=== PATIENT | male | born 1950 | race Caucasian/White ===

== ENCOUNTER 2017-05-15 09:41 | Inpatient (IN) | payer OTHER ==
[~2017-05-15] VITALS: Ht 175.3 cm; Wt 108.5 kg
[2017-05-15] MEDS ORDERED: SODIUM CHLORIDE 0.9% 1,000 ML IV ONE (09:48)
[2017-05-15] MEDS ORDERED: SODIUM CHLORIDE FLUSH 10ML SYR IVF ONE (10:00)
[2017-05-15 10:03] LABS: HEMATOCRIT 48.5 % (39.2-51.8); HEMOGLOBIN 16.3 g/dL (13.7-18.0); WHITE BLOOD COUNT 7.5 x10^3/uL (3.4-10)
[2017-05-15 10:16] LABS: BLOOD UREA NITROGEN 27 mg/dL (7-18)
[2017-05-15 10:20] LABS: IS PT STATUS REG ER OR PRE ER? YES
[2017-05-15] MEDS ORDERED: PLEASE ENTER ALLERGIES MC SCH ×2 (10:30)
[2017-05-15] MEDS ORDERED: ACETAMINOPHEN 325 MG TABLET PO PRN (11:00)
[2017-05-15] MEDS: SODIUM CHLORIDE 0.9% 1,000 ML IV SCH ×2 (11:00→19:00)
[2017-05-15] MEDS ORDERED: ONDANSETRON 2MG/ML, 2ML IVPush PRN (11:00)
[2017-05-15] MEDS ORDERED: ZOLPIDEM 5MG TABLET PO PRN (11:00)
[2017-05-15 11:36] LABS: BLOOD UREA NITROGEN 27 mg/dL (7-18)
[2017-05-15] MEDS ORDERED: STATIN (11:37)
[2017-05-15 14:16] VITALS: BP 136/78
[2017-05-15] MEDS ORDERED: ROVUSTATIN PO (15:40)
[2017-05-15 18:37] VITALS: BP 126/67
[2017-05-15] MEDS: SODIUM CHLORIDE FLUSH 10ML SYR IVF SCH (21:48)
[2017-05-16 00:58] VITALS: BP 112/56
[2017-05-16] MEDS: SODIUM CHLORIDE 0.9% 1,000 ML IV SCH ×5 (06:24→19:12)
[2017-05-16 08:37] VITALS: BP 145/76
[2017-05-16] MEDS: SODIUM CHLORIDE FLUSH 10ML SYR IVF SCH ×2 (09:00→21:23)
[2017-05-16] MEDS ORDERED: FENTANYL PF 100 MCG/2ML ONE (09:46)
[2017-05-16] MEDS ORDERED: MIDAZOLAM 1 MG/ML, 5ML ONE (09:46)
[2017-05-16] MEDS ORDERED: VERAPAMIL 2.5 MG/ML, 2ML ONE (09:47)
[2017-05-16] MEDS ORDERED: HEPARIN 1,000 UNITS/ML, 10ML ONE (09:47)
[2017-05-16] MEDS ORDERED: LIDOCAINE 2%, 20ML ONE (09:47)
[2017-05-16] MEDS ORDERED: BIVALIRUDIN 250 MG ONE (09:47)
[2017-05-16 14:40] VITALS: BP 107/71
[2017-05-16 20:05] VITALS: BP 141/88
[2017-05-17 02:10] VITALS: BP 121/73
[2017-05-17 08:00] VITALS: BP 145/85
[2017-05-17] MEDS: SODIUM CHLORIDE FLUSH 10ML SYR IVF SCH ×2 (09:00→23:58)
[2017-05-17 14:00] VITALS: BP 129/73
[2017-05-17 19:40] VITALS: BP 145/80
[2017-05-17] MEDS ORDERED: ONDANSETRON 2MG/ML, 2ML IVPush PRN (20:00)
[2017-05-17] MEDS ORDERED: ACETAMINOPHEN 325 MG TABLET PO PRN (20:00)
[2017-05-18 01:51] VITALS: BP 123/85
[2017-05-18] MEDS ORDERED: AMIODARONE 150 MG in DEXTROSE 5% 100 ML IV ONE (02:00)
[2017-05-18] MEDS ORDERED: AMIODARONE 900 MG in DEXTROSE 5% 482 ML IV PRN (02:00)
[2017-05-18] MEDS ORDERED: FILTER 0.22 MICRON IV PRN (02:00)
[2017-05-18 03:10] VITALS: BP 126/80
[2017-05-18 08:17] VITALS: BP 142/77
[2017-05-18] MEDS: SODIUM CHLORIDE FLUSH 10ML SYR IVF SCH ×3 (08:20→22:03)
[2017-05-18 12:45] VITALS: BP 134/76
[2017-05-18] MEDS ORDERED: ATORVASTATIN 40 MG TABLET PO SCH (17:00)
[2017-05-18] MEDS: CRESTOR 20 MG HOMEMEDPO SCH (17:50)
[2017-05-18] MEDS ORDERED: INSULIN ASPART 100 UNITS/ML, PEN SQ-INSULIN SCH (18:30)
[2017-05-18] MEDS ORDERED: CHLORHEXIDINE MOUTHWASH 15 ML UDC MM PRN (18:30)
[2017-05-18 18:46] LABS: HEMATOCRIT 47.8 % (39.2-51.8); WHITE BLOOD COUNT 8.9 x10^3/uL (3.4-10)
[2017-05-18 18:58] LABS: BLOOD UREA NITROGEN 21 mg/dL (7-18)
[2017-05-18 19:01] LABS: ASPARTATE AMINO TRANSFERASE 12 U/L (15-37)
[2017-05-18 20:00] VITALS: BP 119/73
[2017-05-18] MEDS: MUPIROCIN OINT 2%, 22GM TP SCH (23:19)
[2017-05-19] VITALS (9 sets, daily range): BP systolic 87–138; BP diastolic 43–81
[2017-05-19] MEDS ORDERED: ALBUMIN HUMAN 5% 500 ML IV ONE (03:30)
[2017-05-19] MEDS ORDERED: POTASSIUM CHLORIDE 80 MEQ, SODIUM BICARBONATE 8.4% 10 MEQ, MAGNESIUM SULFATE 0.5 GM, LI... IV PRN (07:30)
[2017-05-19] MEDS ORDERED: PHENYLEPHRINE 10 MG in SODIUM CHLORIDE 0.9% 249 ML IV PRN ×2 (07:30→17:45)
[2017-05-19] MEDS ORDERED: EPINEPHRINE 2 MG in SODIUM CHLORIDE 0.9% 248 ML IV SCH (07:30)
[2017-05-19] MEDS ORDERED: MANNITOL PMX 20% 500 ML IVPB PRN (07:30)
[2017-05-19] MEDS ORDERED: VANCOMYCIN 1,500 MG in SODIUM CHLORIDE 0.9% 250 ML IVPB PRN (07:30)
[2017-05-19] MEDS ORDERED: DEXMEDETOMIDINE 200 MCG in SODIUM CHLORIDE 0.9% 48 ML IV SCH (07:30)
[2017-05-19] MEDS ORDERED: CEFUROXIME 1.5 GM in SODIUM CHLORIDE 0.9% 50 ML IVPB PRN (07:30)
[2017-05-19] MEDS ORDERED: REGULAR INSULIN 62.5 UNITS in SODIUM CHLORIDE 0.9% 249.375 ML IV PRN ×2 (07:30→17:45)
[2017-05-19] MEDS: SODIUM CHLORIDE FLUSH 10ML SYR IVF SCH ×5 (09:00→21:56)
[2017-05-19] MEDS: MUPIROCIN OINT 2%, 22GM TP SCH ×2 (09:59→23:27)
[2017-05-19] MEDS ORDERED: FENTANYL PF 1000 MCG/20ML ONE (11:55)
[2017-05-19] MEDS ORDERED: MIDAZOLAM 10MG/2 ML ONE (11:55)
[2017-05-19] MEDS ORDERED: PROPOFOL 10 MG/ML, 20ML ONE (14:35)
[2017-05-19] MEDS ORDERED: PROTAMINE SULFATE 10 MG/ML, 25ML ONE (14:35)
[2017-05-19] MEDS ORDERED: ROCURONIUM 10 MG/ML ONE (14:35)
[2017-05-19] MEDS ORDERED: FENTANYL PF 250 MCG/5ML ONE (16:09)
[2017-05-19] MEDS ORDERED: CALCIUM CHLORIDE 10%, 10ML SYR ONE (16:35)
[2017-05-19] MEDS ORDERED: MILRINONE 1 MG/ML, 10ML IV ONE (17:28)
[2017-05-19] MEDS ORDERED: SODIUM CHLORIDE 0.9% 1,000 ML IV PRN (17:45)
[2017-05-19] MEDS ORDERED: NITROGLYCERIN/D5W PMX 250 ML IV PRN (17:45)
[2017-05-19] MEDS ORDERED: DEXMEDETOMIDINE 200 MCG in SODIUM CHLORIDE 0.9% 48 ML IV PRN (17:45)
[2017-05-19] MEDS ORDERED: DOBUTAMINE 250 MG in SODIUM CHLORIDE 0.9% 230 ML IV PRN (17:45)
[2017-05-19] MEDS ORDERED: EPINEPHRINE 2 MG in SODIUM CHLORIDE 0.9% 248 ML IV PRN (18:00)
[2017-05-19] MEDS ORDERED: MIDAZOLAM 1 MG/ML, 5ML IVPush PRN (18:00)
[2017-05-19] MEDS ORDERED: SODIUM BICARB 8.4%, 50ML SYRINGE IV PRN (18:00)
[2017-05-19] MEDS ORDERED: GLUCAGON 1 MG IM PRN (18:00)
[2017-05-19] MEDS ORDERED: BISACODYL 10 MG SUPP PR PRN (18:00)
[2017-05-19] MEDS ORDERED: DEXTROSE 50%, 50ML SYRINGE IVPush PRN (18:00)
[2017-05-19] MEDS ORDERED: morphine SULFATE 10 MG/ML, 1ML IVPush PRN (18:00)
[2017-05-19] MEDS ORDERED: ONDANSETRON 2MG/ML, 2ML IVPush PRN (18:00)
[2017-05-19] MEDS ORDERED: MEPERIDINE/PF 25MG/0.5ML IVPush PRN (18:00)
[2017-05-19] MEDS ORDERED: ACETAMINOPHEN 325 MG TABLET PO PRN (18:00)
[2017-05-19] MEDS ORDERED: BISACODYL 5 MG EC TABLET PO PRN (18:00)
[2017-05-19] MEDS ORDERED: DEXTROSE 4 GM TAB.CHEW PO PRN (18:00)
[2017-05-19] MEDS ORDERED: ACETAMINOPHEN 650 MG SUPP PR PRN (18:00)
[2017-05-19] MEDS ORDERED: PROCHLORPERAZINE 5 MG/ML, 2ML IVPush PRN (18:00)
[2017-05-19] MEDS ORDERED: SODIUM BICARB 8.4%, 50ML SYRINGE ONE (18:14)
[2017-05-19] MEDS ORDERED: ALBUMIN HUMAN 25% 50 ML ONE (18:14)
[2017-05-19] MEDS ORDERED: LIDOCAINE 2%, 20ML ONE (18:15)
[2017-05-19] MEDS ORDERED: LIDOCAINE 2% 100MG/5ML SYRINGE ONE (18:16)
[2017-05-19] MEDS ORDERED: methylPREDNISolone SOD SUCC 125 MG/2 ML ONE (18:16)
[2017-05-19] MEDS ORDERED: AMIODARONE 50 MG/ML, 3ML ONE (18:17)
[2017-05-19] MEDS ORDERED: HEPARIN 1,000 UNITS/ML, 30ML ONE (18:17)
[2017-05-19 18:18] LABS: HEMATOCRIT 44.4 % (39.2-51.8); HEMOGLOBIN 14.7 g/dL (13.7-18.0)
[2017-05-19 18:21] LABS: ABG COLLECTION SITE ARTERIAL LINE
[2017-05-19] MEDS: CRESTOR 20 MG HOMEMEDPO SCH (18:39)
[2017-05-19] MEDS: KSCALE TO 4.5 IV SCH (18:41)
[2017-05-19] MEDS: MAGNESIUM SULFATE 1 GM in SODIUM CHLORIDE 0.9% 50 ML IVPB SCH ×2 (19:26→21:56)
[2017-05-19] MEDS ORDERED: CALCIUM CHLORIDE 13.6 MEQ in SODIUM CHLORIDE 0.9% 100 ML IV ONE (19:30)
[2017-05-19] MEDS: LACTATED RINGERS 500 ML IV PRN (19:57)
[2017-05-19] MEDS ORDERED: NOVOSEVEN RT (FACTOR VIIA) RECOMB 1,000 MCG IVPush STA ×2 (20:32→21:44)
[2017-05-19 20:50] LABS: HEMATOCRIT 36.4 % (39.2-51.8); HEMOGLOBIN 11.8 g/dL (13.7-18.0)
[2017-05-19] MEDS: MUPIROCIN OINT 2%, 22GM NAS SCH (21:00)
[2017-05-19] MEDS: DOCUSATE 100 MG CAPSULE PO SCH (23:27)
[2017-05-19] MEDS: OXYcodone IR 5MG TABLET PO PRN (23:28)
[2017-05-20] MEDS: LACTATED RINGERS 500 ML IV PRN ×2 (00:40→00:41)
[2017-05-20 00:56] LABS: HEMATOCRIT 34.5 % (39.2-51.8); HEMOGLOBIN 11.2 g/dL (13.7-18.0)
[2017-05-20] MEDS ORDERED: POTASSIUM CHLORIDE 40 MEQ in SODIUM CHLORIDE 0.9% 100 ML IV ONE (01:30)
[2017-05-20] MEDS: INSULIN ASPART 100 UNITS/ML, PEN SQ-INSULIN PRN ×3 (01:37→09:36)
[2017-05-20] MEDS ORDERED: EPINEPHRINE 4 MG in SODIUM CHLORIDE 0.9% 246 ML IV PRN (01:58)
[2017-05-20] MEDS: HYDROcodone/APAP 10/325 MG TABLET PO PRN ×4 (02:29→19:35)
[2017-05-20 05:36] LABS: ABG COLLECTION SITE ARTERIAL LINE
[2017-05-20 05:42] LABS: HEMATOCRIT 31.3 % (39.2-51.8); HEMOGLOBIN 10.6 g/dL (13.7-18.0); WHITE BLOOD COUNT 20.9 x10^3/uL (3.4-10)
[2017-05-20 05:50] LABS: BLOOD UREA NITROGEN 21 mg/dL (7-18)
[2017-05-20 05:57] LABS: DIFF TOTAL CELLS COUNTED 100 CELL DIFF
[2017-05-20 05:59] LABS: VERIFY COUNTS? YES
[2017-05-20] MEDS: KSCALE TO 4.5 IV SCH ×2 (06:00)
[2017-05-20] MEDS: CEFUROXIME 1.5 GM in SODIUM CHLORIDE 0.9% 50 ML IVPB SCH ×2 (06:15→17:12)
[2017-05-20] MEDS: VANCOMYCIN 1,500 MG in SODIUM CHLORIDE 0.9% 250 ML IVPB SCH ×2 (06:16→17:12)
[2017-05-20] MEDS ORDERED: POTASSIUM CHLORIDE PMX 100 ML IV ONE (06:30)
[2017-05-20] MEDS: OXYcodone IR 5MG TABLET PO PRN ×2 (06:31→17:13)
[2017-05-20] MEDS: PANTOPRAZOLE 40 MG IV IVPush SCH (08:18)
[2017-05-20] MEDS: MUPIROCIN OINT 2%, 22GM TP SCH (08:19)
[2017-05-20] MEDS: MUPIROCIN OINT 2%, 22GM NAS SCH ×2 (08:19→20:31)
[2017-05-20] MEDS: SODIUM CHLORIDE FLUSH 10ML SYR IVF SCH ×4 (08:19→20:33)
[2017-05-20] MEDS: DOCUSATE 100 MG CAPSULE PO SCH ×2 (08:19→20:32)
[2017-05-20] MEDS: ASPIRIN 81 MG TABLET EC PO SCH (08:19)
[2017-05-20 09:47] LABS: ABG COLLECTION SITE ARTERIAL LINE
[2017-05-20] MEDS: INSULIN ASPART 100 UNITS/ML, PEN SQ-INSULIN SCH ×3 (12:00→20:35)
[2017-05-20] MEDS: WARFARIN MODERAT DOSE PROTOCOL XX SCH (12:00)
[2017-05-20] MEDS: LISINOPRIL 5 MG TABLET PO SCH ×2 (12:08→14:20)
[2017-05-20] MEDS ORDERED: PROPOFOL 10 MG/ML, 20ML ONE (14:35)
[2017-05-20] MEDS ORDERED: ROCURONIUM 10 MG/ML ONE (14:35)
[2017-05-20] MEDS: CRESTOR 20 MG HOMEMEDPO SCH (17:13)
[2017-05-20] MEDS: CHLORHEXIDINE MOUTHWASH 15 ML UDC MM SCH (17:13)
[2017-05-20] MEDS ORDERED: WARFARIN 7.5 MG TABLET PO-COUM ONE (18:00)
[2017-05-20] MEDS: MAGNESIUM SULFATE 1 GM in SODIUM CHLORIDE 0.9% 50 ML IVPB SCH (18:11)
[2017-05-20] MEDS: LISINOPRIL 10 MG TABLET PO SCH (20:32)
[2017-05-21] MEDS: INSULIN ASPART 100 UNITS/ML, PEN SQ-INSULIN SCH ×6 (00:26→23:00)
[2017-05-21] MEDS: OXYcodone IR 5MG TABLET PO PRN ×2 (00:27→12:02)
[2017-05-21 04:56] LABS: HEMOGLOBIN 9.3 g/dL (13.7-18.0); WHITE BLOOD COUNT 15.4 x10^3/uL (3.4-10)
[2017-05-21] MEDS: HYDROcodone/APAP 10/325 MG TABLET PO PRN (05:02)
[2017-05-21 05:07] LABS: BLOOD UREA NITROGEN 23 mg/dL (7-18)
[2017-05-21 07:00] VITALS: BP 98/52
[2017-05-21] MEDS ORDERED: MAGNESIUM HYDROXIDE 8%, 30ML UDC PO PRN (08:00)
[2017-05-21] MEDS: FUROSEMIDE 40 MG/4 ML IV SCH ×2 (08:20→17:00)
[2017-05-21] MEDS: POTASSIUM CHLORIDE 20 MEQ TAB.ER.PRT PO SCH ×2 (08:20→18:05)
[2017-05-21] MEDS: KETOROLAC 30 MG/1 ML IVPush PRN ×3 (08:20→14:47)
[2017-05-21] MEDS: CHLORHEXIDINE MOUTHWASH 15 ML UDC MM SCH ×2 (08:26→20:57)
[2017-05-21] MEDS: SODIUM CHLORIDE FLUSH 10ML SYR IVF SCH ×3 (09:10→20:53)
[2017-05-21] MEDS: DOCUSATE 100 MG CAPSULE PO SCH ×2 (09:11→20:52)
[2017-05-21] MEDS: PANTOPRAZOLE 40 MG IV IVPush SCH (09:11)
[2017-05-21] MEDS: LISINOPRIL 10 MG TABLET PO SCH ×2 (09:11→20:53)
[2017-05-21] MEDS: MUPIROCIN OINT 2%, 22GM NAS SCH ×2 (09:11→20:52)
[2017-05-21] MEDS: ASPIRIN 81 MG TABLET EC PO SCH (09:11)
[2017-05-21 09:30] VITALS: BP 113/53
[2017-05-21] MEDS: WARFARIN MODERAT DOSE PROTOCOL XX SCH (12:00)
[2017-05-21 14:00] VITALS: BP 102/52
[2017-05-21] MEDS: CRESTOR 20 MG HOMEMEDPO SCH (17:00)
[2017-05-21] MEDS ORDERED: WARFARIN 7.5 MG TABLET PO-COUM SCH (18:00)
[2017-05-21 19:31] VITALS: BP 100/57
[2017-05-22 01:32] VITALS: BP 115/67
[2017-05-22] MEDS: KETOROLAC 30 MG/1 ML IVPush PRN ×3 (03:07→20:26)
[2017-05-22 06:11] LABS: HEMATOCRIT 24.4 % (39.2-51.8); HEMOGLOBIN 8.1 g/dL (13.7-18.0); WHITE BLOOD COUNT 10.4 x10^3/uL (3.4-10)
[2017-05-22 06:51] LABS: BLOOD UREA NITROGEN 38 mg/dL (7-18)
[2017-05-22] MEDS: INSULIN ASPART 100 UNITS/ML, PEN SQ-INSULIN SCH ×2 (07:00→12:35)
[2017-05-22 07:20] VITALS: BP_SYST 95
[2017-05-22] MEDS: MUPIROCIN OINT 2%, 22GM NAS SCH ×2 (08:38→20:06)
[2017-05-22] MEDS: POTASSIUM CHLORIDE 20 MEQ TAB.ER.PRT PO SCH ×2 (08:38→16:20)
[2017-05-22] MEDS: DOCUSATE 100 MG CAPSULE PO SCH (08:38)
[2017-05-22] MEDS: PANTOPRAZOLE 40 MG IV IVPush SCH (08:39)
[2017-05-22] MEDS: CHLORHEXIDINE MOUTHWASH 15 ML UDC MM SCH (08:39)
[2017-05-22] MEDS: SODIUM CHLORIDE FLUSH 10ML SYR IVF SCH ×4 (08:39→20:06)
[2017-05-22] MEDS: ASPIRIN 81 MG TABLET EC PO SCH (08:39)
[2017-05-22] MEDS: LISINOPRIL 10 MG TABLET PO SCH (08:39)
[2017-05-22] MEDS: FUROSEMIDE 40 MG/4 ML IV SCH (08:39)
[2017-05-22] MEDS: WARFARIN MODERAT DOSE PROTOCOL XX SCH (08:40)
[2017-05-22 14:30] VITALS: BP 116/67
[2017-05-22] MEDS: OXYcodone IR 5MG TABLET PO PRN (16:17)
[2017-05-22] MEDS: CRESTOR 20 MG HOMEMEDPO SCH (16:17)
[2017-05-22] MEDS ORDERED: WARFARIN 5 MG TABLET PO-COUM SCH (18:00)
[2017-05-22 20:00] VITALS: BP 96/62
[2017-05-23 02:17] VITALS: BP 105/65
[2017-05-23] MEDS: KETOROLAC 30 MG/1 ML IVPush PRN ×2 (05:15→09:50)
[2017-05-23 05:59] LABS: BLOOD UREA NITROGEN 47 mg/dL (7-18)
[2017-05-23 07:16] VITALS: BP 105/68
[2017-05-23] MEDS ORDERED: FUROSEMIDE 40 MG TABLET PO SCH (09:00)
[2017-05-23] MEDS: SODIUM CHLORIDE FLUSH 10ML SYR IVF SCH ×2 (09:00→09:44)
[2017-05-23] MEDS ORDERED: LISINOPRIL 5 MG TABLET PO SCH (09:00)
[2017-05-23] MEDS: DOCUSATE 100 MG CAPSULE PO SCH (09:44)
[2017-05-23] MEDS: ASPIRIN 81 MG TABLET EC PO SCH (09:44)
[2017-05-23] MEDS: POTASSIUM CHLORIDE 20 MEQ TAB.ER.PRT PO SCH (09:44)
[2017-05-23] MEDS: PANTOPRAZOLE 40 MG IV IVPush SCH (09:44)
[2017-05-23] MEDS: MUPIROCIN OINT 2%, 22GM NAS SCH (09:44)
[2017-05-23] MEDS: WARFARIN MODERAT DOSE PROTOCOL XX SCH (09:45)
[2017-05-23] MEDS ORDERED: WARF7.5T PO-COUM (10:46)
[2017-05-23] MEDS ORDERED: FURO40TA6 PO (10:46)
[2017-05-23] MEDS ORDERED: POTA20TA6 PO (10:46)
[2017-05-23] MEDS ORDERED: ASPI-621 PO (10:46)
[2017-05-23] MEDS ORDERED: LISI5TAB7 PO (10:46)
[2017-05-23] MEDS ORDERED: OXYC5CAP4 PO (12:07)
[2017-05-23] MEDS ORDERED: WARFARIN 7.5 MG TABLET PO-COUM SCH (18:00)
== END 2017-05-23 13:18 | disposition home or self-care (01) | DRG 218 ==
LOC: ED 10:40 → EDIP 10:41 → ED 10:59 → 5SO 12:51 → CCU 05-19 13:55 → 5SO 05-21 17:06
PROVIDERS: ADMIT Internal Medicine; ATTEND Internal Medicine
PROC: 4A023N7 Measurement of Cardiac Sampling and Pressure, Left Heart, Percutaneous Approach (ICD-10-PCS; 2017-05-16)
PROC: B2111ZZ Fluoroscopy of Multiple Coronary Arteries using Low Osmolar Contrast (ICD-10-PCS; 2017-05-16)
PROC: B2151ZZ Fluoroscopy of Left Heart using Low Osmolar Contrast (ICD-10-PCS; 2017-05-16)
PROC: 30233L1 Transfusion of Nonautologous Fresh Plasma into Peripheral Vein, Percutaneous Approach (ICD-10-PCS; 2017-05-19)
PROC: 30233R1 Transfusion of Nonautologous Platelets into Peripheral Vein, Percutaneous Approach (ICD-10-PCS; 2017-05-19)
PROC: 30233M1 Transfusion of Nonautologous Plasma Cryoprecipitate into Peripheral Vein, Percutaneous Approach (ICD-10-PCS; 2017-05-19)
PROC: 30233K1 Transfusion of Nonautologous Frozen Plasma into Peripheral Vein, Percutaneous Approach (ICD-10-PCS; 2017-05-19)
PROC: 5A1221Z Performance of Cardiac Output, Continuous (ICD-10-PCS; 2017-05-19)
PROC: B246ZZ4 Ultrasonography of Right and Left Heart, Transesophageal (ICD-10-PCS; 2017-05-19)
PROC: 0BH17EZ Insertion of Endotracheal Airway into Trachea, Via Natural or Artificial Opening (ICD-10-PCS; 2017-05-19)
PROC: 02RF0JZ Replacement of Aortic Valve with Synthetic Substitute, Open Approach (ICD-10-PCS; principal; 2017-05-19 13:00)
DX: I35.0 Nonrheumatic aortic (valve) stenosis (principal); E78.5 Hyperlipidemia, unspecified; I25.10 Atherosclerotic heart disease of native coronary artery without angina pectoris; I44.7 Left bundle-branch block, unspecified; I70.0 Atherosclerosis of aorta; G90.8 Other disorders of autonomic nervous system; R56.9 Unspecified convulsions; Z87.891 Personal history of nicotine dependence; Z82.49 Family history of ischemic heart disease and other diseases of the circulatory system
CPT/HCPCS: 36415; 36600; 71010; 71020; 80048; 80053; 81003; 82040; 82330; 82800; 82803; 82810; 82947; 82962; 83036; 83735; 83880; 84132; 84295; 84443; 84484; 85014; 85018; 85025; 85049; 85347; 85610; 85730; 86850; 86900; 86923; 87081; 88305; 93005; 93306; 93312; 93321; 93325; 93454; 93880; 94002; 94150; 99156; 99285; C1768; C1894; J0583; J0697; J1644; J1815; J1885; J1940; J2250; J2260; J2704; J2720; J3010; J3370; J3475; J3480; J3490; J7120; J7189; P9045; P9047; C1751; C1760; C9113; J0171; J0282; J2270; J2370; J2930; J7030; J7050; P9012; P9017; P9035; Q9967

== ENCOUNTER → 2017-06-18 | Outpatient (CLI) | payer OTHER ==
[~2017-06-18] MED LIST: ASPI-621 PO; FURO40TA6 PO; LISI5TAB7 PO; OXYC5CAP2 PO; POTA20TA6 PO; ROVUSTATIN PO; STATIN; WARF7.5T PO-COUM
== END | disposition home or self-care (01) ==
LOC: CFH 13:41
PROVIDERS: ATTEND Internal Medicine Cardiovascular Disease
DX: I51.7 Cardiomegaly (principal); I95.9 Hypotension, unspecified; Z95.3 Presence of xenogenic heart valve
CPT/HCPCS: 93306

== ENCOUNTER → 2019-03-29 | Outpatient (CLI) | payer OTHER ==
[~2019-03-29] MED LIST changes: -ASPI-621 PO; +ASPI81TA45 PO
== END | disposition home or self-care (01) ==
LOC: CVU 16:00
PROVIDERS: ATTEND Internal Medicine Cardiovascular Disease
DX: I35.0 Nonrheumatic aortic (valve) stenosis (principal); I10 Essential (primary) hypertension; E78.5 Hyperlipidemia, unspecified
CPT/HCPCS: 93306

== ENCOUNTER 2020-03-20 12:47 | Outpatient (CLI) | payer OTHER | END 2020-03-20 23:59 | disposition home or self-care (01) | LOC: CFH 12:47 | PROVIDERS: ATTEND Internal Medicine Cardiovascular Disease | DX: I34.0 Nonrheumatic mitral (valve) insufficiency (principal) | CPT/HCPCS: 93306 ==

== ENCOUNTER 2021-03-21 14:43 | Outpatient (CLI) | payer OTHER | END 2021-03-21 23:59 | disposition home or self-care (01) | LOC: CVU 14:43 | PROVIDERS: ATTEND Registered Nurse | DX: I36.1 Nonrheumatic tricuspid (valve) insufficiency (principal); I10 Essential (primary) hypertension; E78.5 Hyperlipidemia, unspecified; Z95.3 Presence of xenogenic heart valve | CPT/HCPCS: 93306; Q9957 ==